=== PATIENT | male | born 1965 | race Caucasian/White ===

== ENCOUNTER 2019-04-30 06:47 | Outpatient (CLI) | payer BC, SELFPAY ==
--- NOTE | 2019-04-30 06:59 | NMCV_ITS ---
NM cindy perf SPECT r/s* [id number] Mynor Villatoro Age: 54 Gender: M : 1965 Exam Date: 04/30/2019 08:01 Ordering Phys: Rima Irene MD Technologist: JUANITA Wolf Exam Location: [facility] Indications: Chest pain STRESS TEST Please see separate stress test report in Ephiphany for full findings IMAGE PROTOCOL Rest/Stress 1 Exercise Day Radiopharmaceutical Dose (mCi) Administration Site Administered by Rest: Tc-99m 11.0 IV Viola Boris, MANUFACTURING AUTOMATION ENGINEER Sestamibi Stress:Tc-99m 32.8 IV Viola Boris, MANUFACTURING AUTOMATION ENGINEER Sestamibi Rest: 30-Apr-2019 60 Discovery 630 Stress: 30-Apr-2019 15 Discovery 630 Radiopharmaceutical was injected at 87% maximum heart rate. Images obtained in supine and prone position. SPECT RESULTS Technical Quality: Excellent Raw Data Analysis: Normal Image Corrections: No attenuation or motion correction applied Summed Stress Score: 4 Summed Rest Score: 0 Summed Difference Score: 4 PERFUSION FINDINGS Small size perfusion abnormality of mild to moderate severity of mid to apical inferolateral and mid to apical inferior wall on stress images. FUNCTIONAL RESULTS (calculated via Gated SPECT) Stress Image LV EF (%): 76 Stress EDV (mL):94 TID: 0.87 Stress ESV (mL):23 FUNCTIONAL FINDINGS: The left ventricle is normal in size. Transient Ischemia Dilatation of 0.87. There is normal left ventricular systolic function. The left ventricular ejection fraction is normal with a value of 76%. No regional wall motion abnormality. Normal end-diastolic and end-systolic volumes. IMPRESSIONS 1. Small size reversible perfusion abnormality of mild to moderate severity of mid to apical inferolateral and mid to apical inferior [place]. This is indicative of coronary lesion in right coronary artery/circumflex artery territory. 2. Overall left ventricular systolic function is abnormal with regional wall motion abnormalities. 3. The left ventricular ejection fraction is normal with a value of 76%. 4. No prior similar studies to compare. Paige Simon MD (Electronically Signed) Final Date: 30 April 2019 17:57 S
--- NOTE | 2019-04-30 06:59 | ECG_ITS ---
NAME OF STUDY: EXERCISE SESTAMIBI STRESS TEST INDICATION: Chest Pain Baseline blood pressure of 140/105 mm Hg, heart rate 66 beats per minute and oxygen saturation 97%. EKG showed normal sinus rhythm, normal axis with nonspecific T wave changes. The patient exercised for 10 minutes 3 seconds on a standard Maxx protocol. Patient attained a maximum heart rate of 152 beats per minute(92 % of the maximum predicted heart rate) with a blood pressure at the peak exercise of 185/97 mm Hg and oxygen saturation 91%. The EKG at the peak exercise revealed sinus tachycardia with no significant ST-T wave changes. Interpretation somewhat limited by baseline artifact. Patient did not have any chest pain or any significant arrhythmia with the exercise During the recovery phase, there were no new changes. Blood pressure at the end of the recovery phase was 173/80 mm Hg with a heart rate of 97 beats per minute and oxygen saturation 99%. CONCLUSION: 1. Normal EKG response to treadmill exercise. 2. No exercise-induced chest pain or cardiac arrhythmia 3. Excellent exercise tolerance, attained a maximum of 13.5 METs. Maximum VO2 of 47.3 mL/kg/min. 4. Baseline hypertension with normal response to exercise. 5. Perfusion scan will be documented separately. Electronically Signed On 05-01-2019 17:21:16 LEGAL EDITOR by Paige Simon M.D. [id number]
[2019-04-30 07:11] VITALS: BMI 30.1
[2019-04-30 09:02] VITALS: BP 173/80; PULSE 90
== END 2019-04-30 06:48 | disposition home or self-care (01) ==
LOC: CDL 06:50
PROVIDERS: PCP Family Medicine; Visit Provider Family Medicine
DX: I10 Essential (primary) hypertension (principal); R07.9 Chest pain, unspecified
CPT/HCPCS: 78452; 93017; A9500

== ENCOUNTER → 2019-11-07 09:53 | Outpatient (BNVA) | payer BC, SELFPAY | PROVIDERS: PCP Family Medicine; Visit Provider Internal Medicine Cardiovascular Disease | DX: R94.39 Abnormal result of other cardiovascular function study (principal); E78.2 Mixed hyperlipidemia; E78.5 Hyperlipidemia, unspecified | CPT/HCPCS: 80061; 80076 ==

== ENCOUNTER 2019-11-22 14:42 | Outpatient (CLI) | payer BC, SELFPAY ==
--- NOTE | 2019-11-22 15:00 | USCV_ITS ---
Mynor Villatoro Age: 54 Gender: M : 1965 Exam Date: 11/22/2019 15:40 Ordering Phys: Aislinn Sage MD ([email or web address]) Technologist: Dominique Brewer Exam Location: [facility] Indication: chest pain and htn BP: 139 / 91 HR: 63 Rhythm: Sinus Technical Quality: MEASUREMENTS (Male / Female) Normal Values 2D ECHO LV Diastolic Diameter PLAX 4.4 cm 4.2 - 5.9 / 3.9 - 5.3 cm LV Systolic Diameter PLAX 2.1 cm LV Chamber Size 3.6 cm IVS Diastolic Thickness 1.0 cm 0.6 - 1.0 / 0.6 - 0.9 cm IVS Systolic Thickness 1.6 cm LVPW Diastolic Thickness 1.2 cm 0.6 - 1.0 / 0.6 - 0.9 cm LVPW Systolic Thickness 1.6 cm RV Chamber Size 3.8 cm LVOT Diameter 2.1 cm LV Ejection Fraction 2D Teich 82.9 % LV Ejection Fraction MOD 2C 58.7 % LV Ejection Fraction 2C AL 60.6 % LA Diameter 4.3 cm LA Width 2.2 cm LA Height 4.3 cm RA Width 2.3 cm RA Height 3.8 cm Aorta at Sinotubular Diameter 3.4 cm M-MODE RV Diastolic Diameter MM 0.3 cm Aortic Annulus Diameter 3.6 cm LA Ao Ratio MM 1.2 DOPPLER PV Peak Velocity 73.0 cm/s RV Acceleration Time 0.2 s RV Ejection Time 0.4 s RV AcT/ET 0.4 FINDINGS Left Ventricle Normal left ventricular size and systolic function, EF 62 %. No regional wall motion abnormalities. Mild left ventricular hypertrophy. Right Ventricle The right ventricle is normal in size and function. Right Atrium The right atrium is normal in size. Left Atrium The left atrium is normal in size. Mitral Valve No gross abnormalities noted . Aortic Valve No gross abnormalities noted . Tricuspid Valve No gross abnormalities noted . Pulmonic Valve No gross abnormalities noted . Pericardium Normal pericardium without effusion. Aorta Normal ascending aorta dimension. CONCLUSIONS Normal left ventricular size and systolic function, EF 62 %. No regional wall motion abnormalities. Mild left ventricular hypertrophy. Normal chamber sizes. No significant valvular abnormality There is no pericardial effusion. There are no intracardiac masses. No previous study is available for comparison. Dr Aislinn Sage MD FACC (Electronically Signed) Final Date: 22 November 2019 17:28 S
== END 2019-11-22 14:43 | disposition home or self-care (01) ==
LOC: RAD 14:44
PROVIDERS: PCP Family Medicine; Visit Provider Internal Medicine Cardiovascular Disease
DX: R07.9 Chest pain, unspecified (principal); I10 Essential (primary) hypertension
CPT/HCPCS: 93308

== ENCOUNTER 2020-09-15 09:37 | Emergency (ER) | payer OTHER, SELFPAY ==
[2020-09-15 10:11] VITALS: BP 130/87; PULSE 79; RESP 18; TEMP 37.2; O2SAT 93; BMI 29.7
--- NOTE | 2020-09-15 10:28 | ED_ITS ---
HPI - COVID General: Chief Complaint: COVID symptoms Stated Complaint: COVID +, Cough, fever, D/N, SOB, INFUSION BAM Time Seen by Provider: 09/15/20 10:24 Triage information: Has fever, cough or shortness of breath . No known COVID + exposure last 14 days History of Present Illness: MD complaint: known COVID positive (Patient did home test started with symptoms on Monday last week tested on Monday.) Prior covid testing: yes, results known Prior testing date: 09/06/20 COVID 19 common symptoms: positive fever(s), chills, cough, dyspnea, fatigue, body aches, headache(s), loss of sense of smell and/or taste and nausea; negative throat pain or nasal congestion COVID 19 other sytmptoms: negative chest pain Onset (ago): day(s) Severity: moderate Pertinent comorbid conditions: hypertension Treatment prior to arrival: acetaminophen and ibuprofen COVID Results: SARS-CoV-2 Antigen (Rapid) Positive (Negative) H 09/15/20 10:39 09/15/20 Review of Systems Const: Reports: fever(s), chills, body aches and fatigue Eyes: Denies: change in vision or blurry vision ENMT: Denies: throat pain or nasal congestion Card: Denies: chest pain or dyspnea on exertion Resp: Reports: dyspnea GI: Reports: nausea : Denies: difficulty urinating Musc: Denies: extremity pain Skin/Breast: Denies: rash Neuro: Reports: headache(s) Psych: Denies: anxiety or depression Kj/Lymph: Denies: easy bruising PFSH ED PFSH: Medical History Abnormal nuclear stress test Atypical chest pain Benign essential HTN Hyperlipidemia No pertinent past medical history Surgical History H/O: vasectomy History of thyroidectomy Family History Mother Anesthesia complication Father Bleeding disorder CAD (coronary artery disease) Grandfather CAD (coronary artery disease) Cancer Lung disease Stroke Other Family history of premature coronary artery disease Denies family history of Diabetes Clotting disorder Dementia Chronic kidney disease (CKD) Suicide Social History Smoking and tobacco status: never smoked Alcohol intake: never Physical Exam Const: COMMON NORMALS: no acute distress, average body habitus and patient oriented x3 HENMT: COMMON NORMALS: normocephalic HEAD & SCALP: normal to inspection and normocephalic FACE & SINUS: normal facial exam Eye: COMMON NORMALS: conjunctivae normal GENERAL EYE: appearance normal, b oth eyes and all related structures CONJUNCTIVA: Yes conjunctivae normal Neck/C-Spine: COMMON NORMALS: no JVD Chest: COMMONS NORMALS: normal inspection of the chest Resp: COMMON NORMALS: normal respiratory effort Cardio: COMMON NORMALS: no JVD GI: INSPECTION: Yes normal to inspection Extremity: COMMON NORMALS: normal to inspection and full ROM Neuro: COMMON NORMALS: patient oriented x3 Course Vital Signs: Vital signs: Vital Signs Temperature 100.2 F H 09/15/20 14:07 Pulse Rate 96 09/15/20 14:07 Respiratory Rate 18 09/15/20 14:07 Blood Pressure 130/90 09/15/20 14:07 Pulse Oximetry 96 09/15/20 14:07 MDM - COVID MDM Narrative: Medical decision making narrative: Patient did home test for Covid which was positive , he was retested here and positive for Covid . his symptoms started last Monday tested on Monday. Patient felt he is not improved. Laboratory studies were done patient was given Bham infusion after informed consent. Patient tolerated well. Patient discharged home on Zofran as told monitor oxygen levels follow-up as needed. Lab Data: Labs: Lab Results 09/15/20 09/15/20 09/15/20 Range/Units 10:39 11:00 11:00 WBC 4.3 (4.0-10.0) 10^3/ uL RBC 5.64 H (4.1-5.3) 10^6/u L Hgb 16.3 (11.7-16.6) g/dL Hct 47.6 (42.0-52.0) % MCV 84.4 (80-94) fL MCH 28.9 (28.0-34.0) pg MCHC 34.2 (30.0-36.0) g/dL RDW 13.1 (12.1-15.1) % Plt Count 86 L (130-400) 10^3/c mm MPV 12.3 H (7.4-10.4) fL Neut % (Auto) 77.0 % Lymph % (Auto) 16.5 % [place] % (Auto) 5.8 % Eos % (Auto) 0.0 % Baso % (Auto) 0.2 % Neut # (Auto) 3.31 (1.8-7.7) 10^3/u L Lymph # (Auto) 0.7 L (0.8-4.8) 10^3/u L [place] # (Auto) 0.3 (0.2-0.9) 10^3/u L Eos # (Auto) 0.0 (0.0-0.8) 10^3/u L Baso # (Auto) 0.0 (0.0-0.1) 10^3/u L Nucleated RBC % (a uto) 0 % Nucleated RBCs # 0.0 /100WBC Sodium 136 (136-145) mmol/L Potassium 4.0 (3.5-5.1) mmol/L Chloride 98 (98-107) mmol/L Carbon Dioxide 28 (22-29) mmol/L Anion Gap 14.0 (5-19) BUN 21 H (6-20) mg/dL Creatinine 1.0 (0.7-1.2) mg/dL GFR Calculation 77.3 L (90-130) mL/min Glucose 122 H (65-115) mg/dL Calculated Osmolal ity 286 (285-295) mOsm/k g Calcium 8.9 (8.5-10.5) mg/dL SARS-CoV-2 Ag (Rap id) Positive H (Negative) COVID Results: SARS-CoV-2 Antigen (Rapid) Positive (Negative) H 09/15/20 10:39 09/15/20 Monoclonal Antibody Treatments Inclusion/Exclusion Criteria weight >/= 40 kg and + direct Sars-Cov-2 test less than 7-10 days ago age >/= 55 and has hypertension not requiring hospitalization and not requiring oxygen (if not chronically on oxygen) Patient education patient/family/caregiver received/reviewed fact sheet, Emergency Use Authorization/unapproved drug status discussed with patient/family/caregiver, alternatives to this treatment discussed with patient/family/caregiver, risks and benefits of medication reviewed with patient/family/caregiver, patient/family/caregiver given opportunity for questions, which were answered and patient consents to receiving Monoclonal Antibody Treatment Plan for treatment Meets criteria for Monoclonal Antibody infusion Ordering Monoclonal Antibody infusion for today and Monoclonal antibody information given Discharge Plan Discharge Patient Disposition: Home Clinical Impression: COVID-19 Condition: Stable Prescriptions: New Zofran 4 mg tablet 4 mg PO Q8H 3 Days Qty: 9 RF: 0 No Action atorvastatin 40 mg tablet 40 mg PO BEDTIME RF: 0 aspirin [Adult Low Dose Aspirin] 81 mg tablet,delayed release (DR/EC) 81 mg PO QPM RF: 0 nitroglycerin 0.4 mg tablet, sublingual 0.4 mg SUBLINGUAL Q5M PRN (Reason: chest pain) 30 Days Qty: 30 RF: 3 Tylenol Extra Strength 500 mg Tablet 1,000 mg PO PRN RF: 0 ibuprofen 200 mg Tablet 600 mg PO PRN RF: 0 Emergen-C 1,000 mg Powder Effervescent In Packet 1 ea PO DAILY RF: 0 zinc 1 tab PO DAILY RF: 0 carvedilol 12.5 mg tablet See Rx Instructions .ROUTE .COMPLEX RF: 0 Discharge Orders: Discharge ED (Routine); Ordered 09/15/20 Ordered By: Arie Bazzi Referrals: Rima Irene MD [Primary Care Provider] - Discharge Diet: Usual diet Discharge Activity: Increase activity as tolerated Patient Instructions: Viral Syndrome (ED) Activity Restrictions/Additional Instructions: Follow-up with medical provider as directed. Take medications as prescribed. Return to the ER or your medical provider if condition worsens. Please read and understand discharge instructions. If any questions ask please. Check oxygen levels with pulse ox on a regular basis if any shortness of breath is present. Coding Level of Care Code ED Correctional Therapy Teacher for Flowerg Fwd Exam Comprehensive
[2020-09-15 10:59] VITALS: BP 115/80; PULSE 76; RESP 15; O2SAT 94
[2020-09-15] MEDS: ondansetron 2 mg/ML SDV 2 mL 4 MG IVP ×2 (11:08→13:43)
[2020-09-15 11:10] LABS: Basophils % 0.2 %; Hematocrit 47.6 % (42.0-52.0); Hemoglobin 16.3 g/dL (11.7-16.6); Lymphocytes # 0.7 10^3/uL (0.8-4.8); Lymphocytes % 16.5 %; Mean Corpuscular HGB Conc 34.2 g/dL (30.0-36.0); Mean Corpuscular Hemoglobin 28.9 pg (28.0-34.0); Mean Corpuscular Volume 84.4 fL (80-94); Mean Platelet Volume 12.3 fL (7.4-10.4); Monocytes # 0.3 10^3/uL (0.2-0.9); Monocytes % 5.8 %; Neutrophils # 3.31 10^3/uL (1.8-7.7); Nucleated Red Blood Cells % 0 %; Platelet Count 86 10^3/cmm (130-400); Red Blood Count 5.64 10^6/uL (4.1-5.3); Red Cell Distribution Width 13.1 % (12.1-15.1); White Blood Count 4.3 10^3/uL (4.0-10.0)
[2020-09-15 11:15] VITALS: O2SAT 97
[2020-09-15 11:19] LABS: SARS Covid-2 Antigen Positive (Negative)
[2020-09-15 11:32] LABS: Blood Urea Nitrogen 21 mg/dL (6-20); Calcium 8.9 mg/dL (8.5-10.5); Carbon Dioxide 28 mmol/L (22-29); Chloride 98 mmol/L (98-107); Glomerular Filtration Rate 77.3 mL/min (90-130); Glucose 122 mg/dL (65-115); Osmolality Calculated 286 mOsm/kg (285-295); Sodium 136 mmol/L (136-145)
[2020-09-15] MEDS: sodium chloride 0.9% 1,000 ML 999 ML IV (12:01)
[2020-09-15 12:13] VITALS: BP 142/89; PULSE 77; RESP 19; O2SAT 96
[2020-09-15 12:23] VITALS: TEMP 37.3
[2020-09-15] MEDS: ketorolac 30 mg/mL INJ IVP (13:37)
[2020-09-15 14:07] VITALS: BP 130/90; PULSE 96; RESP 18; TEMP 37.9; O2SAT 96
--- NOTE | 2020-09-17 14:51 | DCPLANNER ---
manager radiation had message that patient received the BAM infusion. manager radiation called to patient to check on patient to see how patient was feeling. manager radiation called phone number , unable to speak with patient at this time, a voicemail was left for patient to return director of casework department phone call.
== END 2020-09-15 13:35 | disposition home or self-care (01) ==
PROVIDERS: Emergency Provider Nurse Practitioner Family; PCP Family Medicine
DX: U07.1 COVID-19 (principal); Z79.82 Long term (current) use of aspirin; I10 Essential (primary) hypertension; E78.5 Hyperlipidemia, unspecified
CPT/HCPCS: 80048; 85025; 87426; 96365; 96375; 96376; 99284; J1885; J2405; J7030

== ENCOUNTER → 2020-11-12 11:05 | Outpatient (BNVA) | payer OTHER, SELFPAY | PROVIDERS: PCP Family Medicine; Visit Provider Internal Medicine Cardiovascular Disease | DX: R94.39 Abnormal result of other cardiovascular function study (principal); E78.2 Mixed hyperlipidemia | CPT/HCPCS: 80061; 80076 ==

== ENCOUNTER → 2021-01-14 09:18 | Outpatient (BNVA) | payer OTHER, SELFPAY | PROVIDERS: PCP Family Medicine; Visit Provider Internal Medicine Cardiovascular Disease | DX: E78.2 Mixed hyperlipidemia (principal) | CPT/HCPCS: 80061 ==

== ENCOUNTER → 2021-03-25 08:10 | Outpatient (BNVA) | payer OTHER, SELFPAY | PROVIDERS: PCP Family Medicine; Visit Provider Internal Medicine Cardiovascular Disease | DX: E78.2 Mixed hyperlipidemia (principal) | CPT/HCPCS: 80061 ==

== ENCOUNTER 2023-10-18 11:27 | Emergency (ER) | payer OTHER, SELFPAY ==
[2023-10-18] VITALS (37 sets, daily range): BP systolic 106–138; BP diastolic 81–93; PULSE 56–68; RESP 10–27; TEMP 36.7; O2SAT 90–97; BMI 33.0
--- NOTE | 2023-10-18 11:33 | ECG_ITS ---
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 Measurements Intervals [place] Rate: 70 P: 180 [place]: 177 QRS: 215 QRSD: 90 T: 175 QT: 398 QTc: 431 Interpretive Statements ECTOPIC ATRIAL RHYTHM POSSIBLE RIGHT VENTRICULAR HYPERTROPHY [SOME/ALL OF: PROMINENT R IN V1, LATE TRANSITION, RAD, DEBBY, SSS] No previous ECG available for comparison Electronically Signed On 10-18-2023 16:12:41 CDT by Surinder Sarabia M.D. [id number]
--- NOTE | 2023-10-18 11:43 | XR_ITS ---
WS: [id number] XR chest 1V portable [id number] REASON FOR EXAM: cp FINDINGS: No previous examination for comparison. The heart and the mediastinum are within normal limits. Calcified granulomatous disease bilaterally. Oblique linear opacities in the left lower lung which could represent atelectasis or parenchymal scar ring. Chronicity unknown. No acute pulmonary parenchymal or pleural abnormality in the right hemithor ax. XR/XR chest 1V portable [id number] IMPRESSION: Lung opacities in the left lower hemithorax of unknown chronicity. Most likely atelectasis and/or chronic interstitial change.
--- NOTE | 2023-10-18 11:53 | W.ED.CHESTPA ---
HPI - Chest Pain General: Chief Complaint: Chest Pain Stated Complaint: chest pain Source: patient Mode of arrival: ambulatory Limitations: no limitations History of Present Illness: 58-year-old male states he has been having intermittent chest pains been going on for last 2 days states has been a pressure type pains had some mild dyspnea as well. He denies any vomiting or diarrhea. Patient denies any cough or fever denies any worsening factors. Associated symptoms: Deny abdominal pain, dyspnea, fever(s), nausea or vomiting Review of Systems Const: Denies: fever(s), chills, body aches or change in appetite ENMT: Denies: throat pain or dental pain Card: Denies: chest pain Resp: Denies: dyspnea GI: Denies: abdominal pain, nausea, vomiting or diarrhea : Denies: dysuria Musc: Denies: neck pain or back pain Skin/Breast: Denies: rash Neuro: Denies: headache(s) PFSH ED PFSH: Medical History (Updated 10/18/23 @ 14:53 by Angie Soler MD) Benign essential HTN Abnormal nuclear stress test Atypical chest pain No pertinent past medical history Hyperlipidemia Surgical History H/O: vasectomy History of thyroidectomy Family History Mother Anesthesia complication Father Bleeding disorder CAD (coronary artery disease) Grandfather CAD (coronary artery disease) Cancer Lung disease Stroke Other Family history of premature coronary artery disease Denies family history of Diabetes Clotting disorder Dementia Chronic kidney disease (CKD) Suicide Social History Smoking and tobacco/nicotine status: never used tobacco/nicotine Alcohol intake: never Substance/Drug Use: never Physical Exam Const: COMMON NORMALS: no acute distress, patient oriented x3 and healthy appearing HENMT: COMMON NORMALS: normocephalic and atraumatic HEAD & SCALP: normocephalic and atraumatic Eye: COMMON NORMALS: Equal, round and reactive pupils present and EOMs intact bilaterally PUPIL: Yes Equal, round and reactive pupils present Neck/C-Spine: COMMON NORMALS: full ROM and supple Chest: COMMONS NORMALS: normal inspection of the chest and normal palpation of entire chest wall Resp: COMMON NORMALS: normal respiratory effort, No retractions, No use of accessory muscles and clear to auscultation bilaterally AUSCULTATION: clear to auscultation bilaterally Cardio: COMMON NORMALS: regular rate, regular rhythm and No murmurs present (Cardio) RATE: regular rate RHYTHM: regular rhythm GI: COMMON NORMALS: Normal to inspection, nondistended, normoactive bowel sounds present, Soft to palpation, non-tender and no masses PALPATION: Yes Soft to palpation Extremity: COMMON NORMALS: normal to inspection and full ROM Neuro: COMMON NORMALS: patient oriented x3, moves all extremities and no focal motor deficits Psych: COMMON NORMALS: mental status grossly normal, Normal thought process present and cooperative THOUGHT PROCESS: Normal thought process present Skin: COMMON NORMALS: no rashes or lesions noted and no wounds GENERAL SKIN EXAM: no rashes or lesions noted Course Vital Signs: Vital signs: Vital Signs Temperature 98.0 F 10/18/23 11:37 Pulse Rate 58 L 10/18/23 14:35 Respiratory Rate 13 10/18/23 14:35 Blood Pressure 133/86 10/18/23 15:00 Pulse Oximetry 95 10/18/23 14:35 Oxygen Delivery Me thod Room Air 10/18/23 13:25 MDM - Chest Pain Medical Decision Making Patient presents here with chest pain atypical nature could be gastric as well troponins EKGs D-dimer here are all negative will start patient on Protonix will have follow-up with PCP return if worsening return patient understands agrees to plan he has no signs of acute coronary syndrome no signs of dissection or pulm embolism. Medical Records I reviewed the patient's medical records. Lab Data I reviewed the patient's lab results. 10/18/23 11:45 10/18/23 11:45 Radiology Impressions Chest X-Ray 10/18/23 11:43 IMPRESSION: Lung opacities in the left lower hemithorax of unknown chronicity. Most likely atelectasis and/or chronic interstitial change. Laboratory Results WBC 7.99 10^3/uL (3.29-11.43) 10/18/23 11:45 RBC 5.84 10^6/uL (3.85-5.65) H 10/18/23 11:45 Hgb 16.70 g/dL (11.27-16.99) 10/18/23 11:45 Hct 48.1 % (37-53) 10/18/23 11:45 MCV 82.4 fl (82-101) 10/18/23 11:45 MCH 28.6 pg (27-33) 10/18/23 11:45 MCHC 34.7 g/dL (30-55) 10/18/23 11:45 RDW 12.7 % (12.1-15.1) 10/18/23 11:45 Plt Count 178 10^3/cmm (157-399) 10/18/23 11:45 MPV 11.3 fL (7.4-10.4) H 10/18/23 11:45 Neut % (Auto) 68.2 % 10/18/23 11:45 Lymph % (Auto) 23.2 % 10/18/23 11:45 [place] % (Auto) 7.1 % 10/18/23 11:45 Eos % (Auto) 0.6 % 10/18/23 11:45 Baso % (Auto) 0.6 % 10/18/23 11:45 Neut # (Auto) 5.45 10^3/uL (1.8-7.7) 10/18/23 11:45 Lymph # (Auto) 1.9 10^3/uL (0.8-4.8) 10/18/23 11:45 [place] # (Auto) 0.6 10^3/uL (0.2-0.9) 10/18/23 11:45 Eos # (Auto) 0.1 10^3/uL (0.0-0.8) 10/18/23 11:45 Baso # (Auto) 0.1 10^3/uL (0.0-0.1) 10/18/23 11:45 Nucleated RBC % (auto) 0 % 10/18/23 11:45 Nucleated RBCs # 0.0 /100WBC 10/18/23 11:45 D-Dimer <= 0.27 ug/mLFEU (0-0.59) 10/18/23 11:45 Sodium 143 mmol/L (136-145) 10/18/23 11:45 Potassium 4.1 mmol/L (3.5-5.1) 10/18/23 11:45 Chloride 106 mmol/L (98-107) 10/18/23 11:45 Carbon Dioxide 26 mmol/L (22-29) 10/18/23 11:45 Anion Gap 15.1 (5-19) 10/18/23 11:45 BUN 16 mg/dL (6-20) 10/18/23 11:45 Creatinine 0.8 mg/dL (0.7-1.2) 10/18/23 11:45 GFR Calculation 98.9 mL/min (90-130) 10/18/23 11:45 Glucose 95 mg/dL (65-115) 10/18/23 11:45 Calculated Osmolality 297 mOsm/kg (285-295) H 10/18/23 11:45 Calcium 9.1 mg/dL (8.5-10.5) 10/18/23 11:45 Total Bilirubin 1.2 mg/dL (0.15-1.2) 10/18/23 11:45 AST 19 U/L (0-40) 10/18/23 11:45 ALT 31 U/L (0-41) 10/18/23 11:45 Alkaline Phosphatase 110 U/L (40-130) 10/18/23 11:45 Troponin T Baseline 10 ng/L (0-15) 10/18/23 11:45 Troponin T 120 Minute 8.84 ng/L (0-15) 10/18/23 13:26 Delta Troponin T -1.16 ABS# (0-10) L 10/18/23 13:26 Total Protein 6.8 g/dL (6.6-8.7) 10/18/23 11:45 Albumin 4.7 g/dL (3.5-5.2) 10/18/23 11:45 Globulin 2.1 g/dL (1.3-4.6) 10/18/23 11:45 Lipase 29 U/L (13-60) 10/18/23 11:45 All radiology interpretation(s) finalized by discharge EKG Data EKG 1: I personally reviewed and interpreted this EKG as follows: EKG interpretation date: 10/18/23 EKG interpretation time: 11:33 Interpretation: nsr hr [address] or t wave abnormalities qrs 90 qtc 419 EKG 2: I personally reviewed and interpreted this EKG as follows: EKG interpretation date: 10/18/23 EKG interpretation time: 13:51 Interpretation: sinus kadeem hr [address] elevation qrs 87 qtc 411 Discharge Plan Discharge Patient Disposition: Home Clinical Impression: Chest pain Condition: Stable Prescriptions: New Protonix 40 mg tablet,delayed release (DR/EC) 40 mg PO DAILY Qty: 60 0RF No Action aspirin [Adult Low Dose Aspirin] 81 mg tablet,delayed release (DR/EC) 81 mg PO QPM Qty: 90 3RF atorvastatin 40 mg tablet 40 mg PO BEDTIME Qty: 90 3RF ezetimibe [Zetia] 10 mg tablet 10 mg PO DAILY Qty: 90 3RF nitroglycerin 0.4 mg tablet, sublingual 0.4 mg SUBLINGUAL Q5M PRN (Reason: chest pain) Qty: 100 3RF Rx Instructions: until response; do not exceed 3 doses per episode acetaminophen [Tylenol Extra Strength] 500 mg Tablet 1,000 mg PO PRN PRN (Reason: Pain) ibuprofen 200 mg Tablet 600 mg PO PRN PRN (Reason: Pain) Emergen-C 1,000 mg Powder Effervescent In Packet 1 ea PO DAILY PRN (Reason: vitamin supplement) carvedilol 25 mg tablet 25 mg PO BID zinc gluconate 50 mg Tablet 50 mg PO DAILY Discharge Orders: Discharge ED (Routine); Ordered 10/18/23 Ordered By: Angie Soler Referrals: Rima Irene MD [Primary Care Provider] - 4-7 days Discharge Diet: Advance as tolerated Discharge Activity: Resume usual activity Patient Instructions: Chest Pain (ED) Coding Level of Care Code ED Underground Bolting Machine Operator for Oliver Benavides
[2023-10-18] MEDS: ondansetron 2 mg/ML SDV 2 mL 4 MG IVP (11:57)
[2023-10-18 12:03] LABS: Basophils # 0.1 10^3/uL (0.0-0.1); Basophils % 0.6 %; Eosinophils # 0.1 10^3/uL (0.0-0.8); Eosinophils % 0.6 %; Hematocrit 48.1 % (37-53); Lymphocytes # 1.9 10^3/uL (0.8-4.8); Lymphocytes % 23.2 %; Mean Corpuscular HGB Conc 34.7 g/dL (30-55); Mean Corpuscular Hemoglobin 28.6 pg (27-33); Mean Corpuscular Volume 82.4 fl (82-101); Mean Platelet Volume 11.3 fL (7.4-10.4); Monocytes # 0.6 10^3/uL (0.2-0.9); Monocytes % 7.1 %; Neutrophils # 5.45 10^3/uL (1.8-7.7); Neutrophils % 68.2 %; Nucleated Red Blood Cells % 0 %; Platelet Count 178 10^3/cmm (157-399); Red Blood Count 5.84 10^6/uL (3.85-5.65); Red Cell Distribution Width 12.7 % (12.1-15.1); White Blood Count 7.99 10^3/uL (3.29-11.43)
[2023-10-18 12:18] LABS: Troponin(5th) Baseline 10 ng/L (0-15)
[2023-10-18 12:21] LABS: D Dimer <= 0.27 ug/mLFEU (0-0.59)
[2023-10-18 12:22] LABS: Alanine Aminotransferase 31 U/L (0-41); Albumin Level 4.7 g/dL (3.5-5.2); Alkaline Phosphatase 110 U/L (40-130); Anion Gap 15.1 (5-19); Aspartate Amino Transferase 19 U/L (0-40); Blood Urea Nitrogen 16 mg/dL (6-20); Calcium 9.1 mg/dL (8.5-10.5); Carbon Dioxide 26 mmol/L (22-29); Chloride 106 mmol/L (98-107); Globulin 2.1 g/dL (1.3-4.6); Glomerular Filtration Rate 98.9 mL/min (90-130); Glucose 95 mg/dL (65-115); Lipase 29 U/L (13-60); Osmolality Calculated 297 mOsm/kg (285-295); Potassium 4.1 mmol/L (3.5-5.1); Sodium 143 mmol/L (136-145); Total Bilirubin 1.2 mg/dL (0.15-1.2); Total Protein 6.8 g/dL (6.6-8.7)
--- NOTE | 2023-10-18 13:51 | ECG_ITS ---
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 Measurements Intervals [place] Rate: 54 P: 50 SD: 195 QRS: -19 QRSD: 87 T: -18 QT: 424 QTc: 405 Interpretive Statements SINUS BRADYCARDIA NONSPECIFIC T-WAVE ABNORMALITY Compared to ECG 10/18/2023 11:33:57 T-wave abnormality now present Ectopic atrial rhythm no longer present Atrial abnormality no longer present Electronically Signed On 10-18-2023 16:14:06 CDT by Surinder Sarabia M.D. [id number]
[2023-10-18 14:21] LABS: Troponin 5 2HR 8.84 ng/L (0-15)
[2023-10-18 14:22] LABS: Troponin 5 2HR Delta -1.16 ABS# (0-10)
== END 2023-10-18 15:10 | disposition home or self-care (01) ==
PROVIDERS: Emergency Provider Emergency Medicine; PCP Family Medicine
DX: R07.9 Chest pain, unspecified (principal); R00.1 Bradycardia, unspecified; Z79.82 Long term (current) use of aspirin; I10 Essential (primary) hypertension; E78.5 Hyperlipidemia, unspecified
CPT/HCPCS: 36415; 71045; 80053; 83690; 84484; 85025; 85378; 93005; 96374; 99285; J2405